=== PATIENT | female | born 1940 | race Caucasian/White ===

== ENCOUNTER 2025-08-25 10:21 | Outpatient (AMB) | payer MEDICARE, SELFPAY ==
--- NOTE | 2025-08-25 10:44 | A.OFFVIS_ITS ---
Intake Visit Reasons: 6m HPI Comments Details: 85 old woman with migraines and cervical fusion for CDD and LDD. She had a migraine on Jan 15 and took a Sumatriptan inj in right thigh. It became hard as a rock next day and since then she has had constant pain and burning in right? thigh. She is doing well with no pain after her surgery for LS fusion in October 2022.? No pain meds. Fell at bottom of stairs on 10/17/21 and has no recall of the fall. Having very vivid dreams. Lot of right hip and knee pain and right shoulder pain . Migraines are rare. Has a dry cough especially at night for a year. Neck is Ok. No pain down the legs now. No falls. She has chronic neck pain from spondylosis, disc disease, who had a corpectomy several years ago and fusion and has been maintained on pain medications at low doses. Nocturia x2 with urgency and sometimes incontinence. Review of Systems Const Details: ?General/Constitutional:? Change in appetitedenies.? Fatiguedenies.? Feverdenies.? Weight gaindenies.? Weight lossdenies. ???Sleep:? Difficulty getting to sleepdenies.? Difficulty maintaining sleepdenies?.? Daytime sleepinessdenies. ???Respiratory:? Shortness of breathdenies.? Chest paindenies. ???Cardiovascular:? Chest pain at restdenies.? Chest pain with exertiondenies.? Dizzinessdenies.? Fluid accumulation in the legsdenies.? Irregular heartbeatdenies.? Palpitations denies. ???Gastrointestinal:? Constipationdenies.? Diarrheadenies.? Difficulty swallowingdenies.? Heartburn denies.? Nauseadenies. ???Genitourinary:? Frequent urinationdenies.? Urgencydenies.? Incontinencedenies. ???Musculoskeletal:? Neck painadmits.? Back paindenies.? Joint stiffnessdenies.? Sciaticadenies. ???Neurologic:? Difficulty swallowingdenies.? Balance difficultydenies.? Coordinationnormal.? Difficulty speakingdenies.? Dizzinessdenies.? Faintingdenies.? Gait abnormality denies.? Headachedenies.? Loss of strengthdenies.? Loss of use of extremity denies.? Low back paindenies.? Memory lossdenies.? Seizuresdenies.? Ticsdenies.? Tingling/Numbnessdenies.? Transient loss of visiondenies.? Tremordenies. ???Psychiatric:? Anxietydenies.? Auditory/visual hallucinationsdenies.? Delusionsdenies.? Depressed mooddenies.? Stressorsdenies.? Suicidal thoughtsdenies. Physical Exam Neuro Other: General Examination: GENERAL APPEARANCE:??normal,?in no acute distress.?HEART:??S1, S2 normal,?no murmurs.?LUNGS:??clear anteriorly and posteriorly.?MUSCULOSKELETAL:??normal.?EXTREMITIES:??no edema.?PSYCH:??alert, oriented,?cognitive function intact,?cooperative with exam.? Mini Mental Status Exam: Level of Consciousness:??Alert.?Orientation:??Knows correct year, month, date, day and season,?Knows correct city, county and state. Knows correct location and floor.?Registration:??Able to register 3 objects.?Attention:??Serial 7's performed accurately.?Recall:??Able to recall 3 out of 3 objects.?Language:??Normal spontaneous speech, fluency, repetition,naming, comprehension, reading and writing.?Total Score:??30/30.? Neurological: Abnormal neurological findings:??right shoulder abduction weakness from pain. Absent AJs. Slight left>right dorsiflexor weakness 5-/5. ..?Mental Status:??alert and oriented X 3,?Normal attention, orientation, memory and affect.?Cranial Nerves:??Pupils are equal, round and reactive to light. Fundoscopy shows normal disc bilaterally. External occular muscles are intact. Visual jolly are full, no ptosis. Face is symmetrical, no facial weakness or droop. Facial sensations are normal. Tongue protrudes in midline. Palate elevates symmetrically. Shoulder shrugging is normal..?Motor Examination:??Normal muscle tone, bulk and strength,?No atrophy or fasciculations,?No drift of the extended upper extremities,?Deep tendon reflexes are 2+?,?Plantars are flexor?.?Straight Leg Raising:??90 degrees.?Sensory Exam:??Normal light touch, temperature, pinprick, vibration and joint-position sensations?,?Rhomberg sign is absent.?Coordination:??no ataxia,?no titubation,?tfftmo-jf-rsjj, wkop-dlau-bpvh test and rapid alternating movements were normal.?Gait Exam:??Within normal limits.?Cerebellar Signs:??Ashnud-ey-rdcg and rdgy-hv-quvi is normal,?no dysdiadochokinesia?.?Extrapyramidal System:??No tremor, rigidity with normal facial expressions,?No bradykinesia, no bradyphrenia. Normal arm swing and posture. No propulsion or retropulsion.?Speech:??Normal,?no dysphasia or dysarthria..? Assessment & Plan Assessment & Plan (1) Migraine: Code(s): G43.909 - Migraine, unspecified, not intractable, without status migrainosus Category: Medical (2) Lumbar disc disease with radiculopathy: Code(s): M51.16 - Intervertebral disc disorders with radiculopathy, lumbar region Category: Medical (3) Cervical disc disease with myelopathy: Code(s): M50.00 - Cervical disc disorder with myelopathy, unspecified cervical region Category: Medical (4) Right thigh pain: Code(s): M79.651 - Pain in right thigh Category: Medical Plan Continue current meds. MRI LS spine and right femur for constant right thigh pain Orders: Orders MR lumbar spine wo con Today M51.16 - Intervertebral disc disorders with radiculopathy, lumbar region MR femur RT wo con Today M51.16 - Intervertebral disc disorders with radiculopathy, lumbar region, M79.651 - Pain in right thigh Medications: New carisoprodol 350 mg PO TID 270 tabs 1RF 90 days zolpidem 10 mg PO BEDTIME 90 tabs 1RF 90 days tramadol 50 mg PO TID PRN 270 tabs 1RF pain 90 days sumatriptan succinate do not exceed 2 doses per 24 hrs 100 mg PO Q4H PRN 27 tabs 3RF Migraine Headache 90 days indomethacin administer with food or milk 50 mg PO TID PRN 270 caps 1RF pain and Headache 90 days Coding Level of Care Code Est Pt Level 4 (72939) Diagnoses Migraine G43.909 Lumbar disc disease with radiculopathy M51.16 Cervical disc disease with myelopathy M50.00 Right thigh pain M79.651
--- OUTSIDE RECORDS SUMMARY | 2025-08-25 12:23 | XMS_ITS | Clinical Summary ---
Author Organization [facility] [address] [facility] Address [address] [place] [address] Phone Care Team Providers Care Machine Fixer Name Role Phone Becky Lopez MD Primary Care Provide r Allergies Active Allergy Reactions Criticality Noted Date Comments Latex 06/27/2018 Nsaids (Non-Steroidal Anti-Inflammatory Drug) 06/27/2018 Other 07/02/2018 Steroids-no reaction documented Medications atorvastatin (LIPITOR) 40 mg tablet Take 40 mg by mouth daily. Active carisoprodoL (SOMA) 350 mg tablet Take 350 mg by mouth as needed. Active glipiZIDE (GLUCOTROL) 5 mg tablet Take 5 mg by mouth 3 times daily. Active hydrOXYzine HCL (ATARAX) 10 mg tablet Take 10 mg by mouth as needed. Active levothyroxine (SYNTHROID, LEVOTHROID) 50 mcg tablet Take 50 mcg by mouth daily. Active metFORMIN (GLUMETZA) 500 mg 24 hr tablet Take 500 mg by mouth 2 times daily. Active nortriptyline (PAMELOR) 25 mg capsule Take 1 capsule (25 mg total) by mouth at bedtime. Active omeprazole (PriLOSEC) [address] capsule Take 20 mg by mouth daily. Active propranolol LA (INDERAL LA) 120 mg 24 hr capsule Take 120 mg by mouth daily. Active traMADoL (ULTRAM) 50 mg tablet Take 50 mg by mouth as needed. Active zolpidem (AMBIEN) 10 mg tablet Take 1 tablet (10 mg total) by mouth at bedtime as needed. Max Daily Amount: 10 mg Active Active Problems Problem Noted Date Diagnosed Date Carpal tunnel syndrome on right 12/10/2024 Overview (12/10/2024): 08/2013 surgery Complicated migraine 12/10/2024 Overview (12/10/2024): Last Assessment & Plan: She takes Imitrex as needed, symptoms Imitrex injections for acute episodes. GERD (gastroesophageal reflux disease) Hyperlipidemia 12/10/2024 Overview (12/10/2024): 15yrs ago Hypothyroidism 12/10/2024 Overview (12/10/2024): 10 yrs ago PUD (peptic ulcer disease) 12/10/2024 Ruptured cervical disc 12/10/2024 Overview (12/10/2024): follows Spinal stenosis 12/10/2024 Abnormal MRI, shoulder 10/27/2019 Overview (12/10/2024): Patient was seen by [facility] on 08/20/2019-she had new MRI findings when compared to her previous shoulder x-ray. She was scheduled for MRI with marker. If needed gadolinium will be used. She is following up with and orthopedics with regard to right shoulder pain and abnormal MRI. Concern for proximal biceps tendon rupture?? 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 ([facility] V24, [facility] V28) 11/19/1997 Immunizations Immunization Administration Dates Next Due Influenza trivalent, 0.5mL ( Fluzone High-dose) 65yo and older 07/31/2018 Surgical History Surgery Date Site/Laterality Comments OTHER SURGICAL HISTORY PROCEDURE: BUNION SURGERY, TENDON TRANSPLANTS; COMMENT: shave bone OTHER SURGICAL HISTORY Left PROCEDURE: [place] UNLISTED PROCEDURE INNER EAR; COMMENT: 12 yrs ago, had skin graft for tympanic membrane BREAST REDUCTION PROCEDURE: [place] BREAST REDUCTION FOOT SURGERY 04/2010 Left PROCEDURE: HISTORICAL FOOT SURGERY; COMMENT: corrective surgery; history of heart/screws, surgically removed in 11/2010 CARPAL TUNNEL RELEASE 09/05/2013 Right PROCEDURE: HISTORICAL CARPAL TUNNEL REL BACK SURGERY PROCEDURE: HISTORICAL BACK SURGERY; COMMENT: disc surgery Medical History Medical History Date Comments Diabetes mellitus without co mplication ([facility] V24, [facility] V28) 1997 DX:Diabetes mellitus withou t complication ([facility]) Hypothyroidism DX:Hypothyroidis m; COMMENT: 10 yrs ago Complicated migraine DX:Complica leeann migraine PUD (peptic ulcer disease) DX:PU D (peptic ulcer disease) Ruptured cervical disc DX:Ruptur ed cervical disc; COMMENT: follows Spinal stenosis DX:Spinal stenos is Carpal tunnel syndrome on right DX:Carpal tunnel syndrome on right; COMMENT: 08/2013 surgery Bilateral leg cramps DX:Bilatera l leg cramps Rotator cuff tear arthropathy, right 2015 DX:Rotator cuff tear arthropathy, right GERD (gastroesophageal reflux disease) DX:GERD (gastroesophageal reflux disease) Hyperlipidemia DX:Hyperlipidemi a; COMMENT: 15yrs ago 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 ([facility] V24, [facility] V28) 11/19/1997 DX:Type 2 diabetes mellitus with neurological manifestation (HCC) PVD (peripheral vascular dis ease) ([facility] V24) 06/24/2019 DX:PVD (peripheral vascular disease) (HCC) DM (diabetes mellitus), type 2 with peripheral vascular complications ([facility] V24, [facility] V28) 06/24/2019 DX:DM (diabetes mellitus), type 2 with peripheral vascular complications (HCC) Lung nodules 06/24/2019 DX:Lung nodules; COMMENT: 02/01 multiple nodules, max 6 mm rul Family History Medical History Relation Name Comments Diabetes Brother Stroke Father Diabetes Mother CAD, chf Diabetes Sister Relation Name Status Comments Brother Father Mother Sister Social History Tobacco Use Types Packs/Day Years Used Date Smoking Tobacco: Former Cigarettes Q uit: 06/27/1986 Smokeless Tobacco: Never Alcohol Use Standard Drinks/Week Comments No 0 (1 standard drink = 0.6 oz pur e alcohol) Comments Unknown Sex and Gender Information Value Date Recorded Sex Assigned at Not on file Legal Sex Female 2:12 AM EST Gender Identity Not on file Sexual Orientation Not on file Obstetrics History Plan of Treatment Health Maintenance Due Date Last Done Comments Diabetes: Annual GFR (Glomer ular Filtration Rate) 1942 Diabetes: Annual Foot Exam 1952 Diabetes: Annual Retina Eye Exam 1952 DTaP,Tdap,and Td Vaccines (1 - Tdap) 1961 Pneumococcal Vaccine: 50+ Ye ars (1 of 2 - PCV) 1961 Zoster Vaccines (1 of 2) 1992 RSV Immunization Adult Patie nts (1 - 1-dose 75+ series) 2017 Depression Screening 11/19/2024 Cholesterol Screening (Lipid Panel) 12/09/2024 Diabetes: Annual Urine Albumin-Creatinine Ratio (uACR) 12/09/2024 Diabetes: Blood Sugar Contro l Test (HGBA1C) 12/09/2024 Falls Risk Assessment 12/09/2024 Medicare Annual Wellness Visit 12/09/2024 Osteoporosis Screening (Bone Density Screening) 12/09/2024 Social Influencers of Health Screening 12/09/2024 COVID-19 Vaccine ( - 2023-2 5 season) 2025 Influenza Vaccine (#1) 2025 07/31/2018 HIB Vaccines Aged Out No longer eligi ble based on patient's age to complete this topic HPV Vaccines Aged Out No longer eligi ble based on patient's age to complete this topic Hepatitis A Vaccines Aged Out No long er eligible based on patient's age to complete this topic Hepatitis B Vaccines Aged Out No long er eligible based on patient's age to complete this topic IPV Vaccines Aged Out No longer eligi ble based on patient's age to complete this topic MMR Vaccines Aged Out No longer eligi ble based on patient's age to complete this topic Meningococcal ACWY Vaccine Aged Out N o longer eligible based on patient's age to complete this topic Meningococcal B Vaccine Aged Out No l onger eligible based on patient's age to complete this topic RSV Immunization Patients Un oral 20 months Aged Out No longer eligible b ased on patient's age to complete this topic Varicella Vaccines Aged Out No longer eligible based on patient's age to complete this topic Insurance MEDICARE [facility] Care Teams Machine Fixer Relationship Specialty Start Date End Date Becky Lopez MD [address] [place] [address] PCP - General Internal Medicine 12/16/24
== END 2025-08-25 11:07 | disposition home or self-care (01) ==
LOC: HO.HSM 10:21
PROVIDERS: PCP Internal Medicine; Referring Provider Internal Medicine; Visit Provider Psychiatry & Neurology Neurology
DX: G43.909 Migraine, unspecified, not intractable, without status migrainosus (principal); M51.16 Intervertebral disc disorders with radiculopathy, lumbar region; M50.00 Cervical disc disorder with myelopathy, unspecified cervical region; M79.651 Pain in right thigh
CPT/HCPCS: 99214

== ENCOUNTER → 2025-08-25 10:21 | Outpatient (BNVA) | payer MEDICARE, SELFPAY | PROVIDERS: PCP Internal Medicine; Referring Provider Internal Medicine; Visit Provider Psychiatry & Neurology Neurology | DX: G43.909 Migraine, unspecified, not intractable, without status migrainosus (principal); M51.16 Intervertebral disc disorders with radiculopathy, lumbar region; M79.651 Pain in right thigh | CPT/HCPCS: 99212 ==

== ENCOUNTER 2025-09-12 10:30 | Outpatient (REF) | payer MEDICARE, SELFPAY ==
--- NOTE | ~2025-09-12 | MR_ITS ---
EXAMINATION: MRI FEMUR WITHOUT CONTRAST, RIGHT CLINICAL INFORMATION: Intervertebral disc disorder with radiculopathy. Patient reports pain proximal thigh. Injection pain, tendon, muscle COMPARISON: None TECHNIQUE: MRI of the femur without contrast is performed in a 1.5 Cassi high-field scanner. FINDINGS: Motion artifact on the axial sequence, limiting evaluation. BONE/JOINTS: Right femoral head is well-seated in the acetabulum. No evidence of acute fracture, avascular necrosis or stress reaction. No suspicious bony lesions are seen.. Right pubic rami, symphysis pubis appear unremarkable. MUSCLES/TENDONS: Mild right common hamstring tendinosis.. Visualized tendons otherwise appear intact. There is edema in the right iliopsoas myotendinous region, could reflect strain. Iliopsoas tendon appears intact. No muscle tear or significant fatty infiltration is otherwise identified. JOINT FLUID/BURSA: Small joint fluid. No significant greater trochanteric or iliopsoas bursitis. The visualized right sciatic nerve demonstrates signal within normal limits. INTRAPELVIS STRUCTURES: Right groin lymphadenopathy. No acute findings identified within the pelvis. Additional findings: On the coronal sequence of the left femur, no acute fracture or abnormal edema is identified.. MR/MR femur RT wo con IMPRESSION: 1. Mild right common hamstring tendinosis. 2. Mild edema in the right iliopsoas myotendinous region could reflect muscle strain. Clinically correlate. 2. No evidence of right femoral acute fracture, avascular necrosis or stress reaction. Electronically signed by: Tesfaye Rivas MD 09/14/2025 08:34 AM EDT
--- OUTSIDE RECORDS SUMMARY | 2025-09-12 10:35 | XMS_ITS | Clinical Summary ---
Author Organization [facility] [address] [facility] Address [address] [place] [address] Phone Care Team Providers Care J2Ee Application Developer Name Role Phone Becky Lopez MD Primary [...] 10/27/2019 Overview (12/10/2024): Patient was seen by [facility] on 08/20/2019-she had new MRI findings [...] 6 mm rul PVD (peripheral vascular disease) ([facility] V24) 06/24/2019 DM (diabetes mellitus), type 2 with peripheral vascular complications ([facility] V24, [facility] V28) 06/24/2019 Rotator cuff tear arthropathy, right 11/19/2015 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 ([facility] V24, [facility] V28) 11/19/1997 Immunizations Immunization Administration Dates Next Due Influenza trivalent, 0.5mL ( Fluzone High-dose) 65yo and older 07/31/2018 Surgical History Surgery Date Site/Laterality Comments OTHER SURGICAL HISTORY PROCEDURE: BUNION SURGERY, TENDON TRANSPLANTS; COMMENT: shave bone OTHER SURGICAL HISTORY Left PROCEDURE: [place] UNLISTED PROCEDURE INNER EAR; COMMENT: 12 yrs ago, had skin graft for tympanic membrane BREAST REDUCTION PROCEDURE: [place] BREAST REDUCTION FOOT SURGERY 04/2010 Left PROCEDURE: HISTORICAL FOOT SURGERY; COMMENT: corrective surgery; history of heart/screws, surgically removed in 11/2010 CARPAL TUNNEL RELEASE 09/05/2013 Right PROCEDURE: HISTORICAL CARPAL TUNNEL REL BACK SURGERY PROCEDURE: HISTORICAL BACK SURGERY; COMMENT: disc surgery Medical History Medical History Date Comments Diabetes mellitus without co mplication ([facility] V[facility], [facility] V28) 1997 DX:Diabetes mellitus withou t complication ([facility]) Hypothyroidism DX:Hypothyroidis m; COMMENT: 10 yrs ago [...] 2 diabetes mellitus wit h neurological manifestation ([facility] V24, [facility] V28) 11/19/1997 DX:Type 2 diabetes mellitus with neurological manifestation (HCC) PVD (peripheral vascular dis ease) ([facility]) 06/24/2019 DX:PVD (peripheral vascular disease) (HCC) DM (diabetes mellitus), type 2 with peripheral vascular complications ([facility] V[facility], [facility] V28) 06/24/2019 DX:DM (diabetes mellitus), type 2 [...] age to complete this topic Insurance MEDICARE [facility] Care Teams J2Ee Application Developer Relationship Specialty Start Date End Date Becky Lopez MD [address] [place] [id number] PCP - General Internal Medicine 12/16/24
== END 2025-09-12 10:31 | disposition home or self-care (01) ==
LOC: HO.MRI 10:30
PROVIDERS: PCP Internal Medicine; Visit Provider Psychiatry & Neurology Neurology
DX: M51.16 Intervertebral disc disorders with radiculopathy, lumbar region (principal); M79.651 Pain in right thigh
CPT/HCPCS: 73718

== ENCOUNTER → 2025-09-12 10:30 | Outpatient (BNV) | payer MEDICARE, SELFPAY | PROVIDERS: PCP Internal Medicine; Visit Provider Radiology Diagnostic Ultrasound | DX: M76.891 Other specified enthesopathies of right lower limb, excluding foot (principal); R60.0 Localized edema | CPT/HCPCS: 73718 ==